=== PATIENT | male | born 1980 | race Caucasian/White ===

== ENCOUNTER → 2017-12-10 | Outpatient (REF) | payer OTHER ==
[2017-12-10 10:39] LABS: SEMEN APPEARANCE OPAQUE (OPAQUE); SEMEN VOLUME 2.5 ML (4.0-5.0)
[2017-12-10 10:40] LABS: #IMMOTILE SPERM COUNTED 0; #MOTILE SPERM COUNTED 0; % MOTILITY 0 (> 40%); SEMEN VISCOSITY LIQUID (LIQUID); SEMEN WBC >1 M/ml (<=1 M/ml); SPERM ABNORMAL FORMS WBC'S NOTED; SPERM CONCENTRATION 0 M/ml (> 15 M/ml); TOTAL # SPERM COUNTED 0 M/ml
== END ==
LOC: M LAB REF 10:34
DX: N46.9 Male infertility, unspecified (principal)

== ENCOUNTER → 2018-01-07 | Outpatient (CLI) | payer OTHER | LOC: M SMT 08:35 | DX: N50.3 Cyst of epididymis (principal); N46.029 Azoospermia due to other extratesticular causes | CPT/HCPCS: 76870 ==

== ENCOUNTER → 2018-01-07 | Outpatient (CLI) | payer OTHER | LOC: M SMT 08:46 | DX: N46.9 Male infertility, unspecified (principal) ==

== ENCOUNTER → 2023-11-18 | Outpatient (CLI) | payer OTHER ==
[~2023-11-18] MED LIST: CHAN1PAK13 PO; ROBI1LIQ9 PO
== END ==
LOC: M OUTALCOH 08:15
PROVIDERS: ATTEND Psychiatry & Neurology Psychiatry
DX: Z03.89 Encounter for observation for other suspected diseases and conditions ruled out (principal)